=== PATIENT | male | born 1975 | race Caucasian/White ===

== ENCOUNTER → 2018-05-19 | Outpatient (CLI) | payer MEDICAID ==
[2013-06-07 16:15] VITALS: BP 93/55
[~2018-05-19] MED LIST: ADVIL200 MG PO; FLEXERIL10 MG PO; PERCOCET 325 MG1 TA2 PO
== END ==
LOC: RAD 13:13
DX: R19.09 Other intra-abdominal and pelvic swelling, mass and lump (principal); K40.90 Unilateral inguinal hernia, without obstruction or gangrene, not specified as recurrent

== ENCOUNTER 2020-02-14 11:36 | Emergency (ER) | payer OTHER ==
[~2020-02-14] VITALS: Ht 185.4 cm; Wt 75.0 kg
[2020-02-14 11:54] VITALS: BP 122/78
[2020-02-14] MEDS ORDERED: NORCO 325 MG-51 TA1 PO (13:14)
== END 2020-02-14 13:25 | disposition home or self-care (01) ==
LOC: ED 11:36
DX: S62.515A Nondisplaced fracture of proximal phalanx of left thumb, initial encounter for closed fracture (principal); S60.311A Abrasion of right thumb, initial encounter; W22.8XXA Striking against or struck by other objects, initial encounter; Y99.0 Civilian activity done for income or pay; S69.91XA Unspecified injury of right wrist, hand and finger(s), initial encounter

== ENCOUNTER 2024-10-10 17:04 | Emergency (ER) | payer BC ==
[~2024-10-10 17:04] MED LIST changes: +NORCO 325 MG-51 TA1 PO
[2024-10-10 18:05] VITALS: BP 116/69
[2024-10-10] MEDS ORDERED: Acetaminophen 500 MG TAB PO ONE (18:15)
== END 2024-10-10 18:05 | disposition home or self-care (01) ==
LOC: ED 17:04
DX: J10.1 Influenza due to other identified influenza virus with other respiratory manifestations (principal)